=== PATIENT | female | born 2000 | race Hispanic/Latino ===

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

== ENCOUNTER → 2022-02-26 | Outpatient (CLI) | payer BC | END | disposition home or self-care (01) | LOC: RAH 08:16 | PROVIDERS: ATTEND Obstetrics & Gynecology | DX: N64.4 Mastodynia (principal); N76.4 Abscess of vulva ==

== ENCOUNTER 2023-05-11 18:45 | Emergency (ER) | payer BC ==
[~2023-05-11] VITALS: Ht 165.1 cm; Wt 108.9 kg
[2023-05-11 19:58] LABS: APPEARANCE,URINE CLEAR (CLEAR); BILIRUBIN,URINE NEGATIVE (NEGATIVE); COLOR,URINE COLORLESS (YELLOW); GLUCOSE, URINE (UA) NEGATIVE (NEGATIVE); KETONES,URINE NEGATIVE (NEGATIVE); LEUKOCYTE ESTERASE ,URINE NEGATIVE Leu/uL (NEGATIVE); NITRATE,URINE NEGATIVE (NEGATIVE); PROTEIN,URINE NEGATIVE (NEGATIVE); UROBILINOGEN,URINE 0.2 mg/dL (0.2-1.0)
[2023-05-11 19:59] LABS: ADD UA MICROSCOPIC YES
[2023-05-11 20:00] LABS: BACTERIA,URINE RARE /HPF (None Seen); SQUAMOUS EPITHELIAL CELL,UR RARE /HPF (0-2); WBC,URINE 0-1 /HPF (0-1)
[2023-05-11 20:14] VITALS: BP 132/74; PULSE 88; RESP 18; O2SAT 99
[2023-05-11] MEDS ORDERED: [UNRECOGNIZED DRUG - CODE] VG (20:16)
[2023-05-11] MEDS ORDERED: PHEN-847 PO (20:16)
[2023-05-11] MEDS ORDERED: PHENAZOPYRIDINE HCL 200 MG TABLET PO ONE (20:30)
== END 2023-05-11 20:25 | disposition home or self-care (01) ==
LOC: EDH 18:45
DX: B37.41 Candidal cystitis and urethritis (principal); Z88.0 Allergy status to penicillin
CPT/HCPCS: 81001